=== PATIENT | male | born 1995 | race Caucasian/White ===

== ENCOUNTER 2019-10-15 19:35 | Emergency (ER) | payer MEDICAID, OTHER ==
[~2019-10-15] VITALS: Ht 175.3 cm; Wt 61.0 kg
--- NOTE | 2019-10-15 20:06 | NUR ---
assisting RN with pt care, dental laboratory technology teacher at bedside, pt is compliant with blood draw, also gave pt food and water, pt aware UA needed
--- NOTE | 2019-10-15 20:07 | NUR ---
pt has small open wound to rt hip x2 weeks per pt, no drainage, no swelling, no redness, unk how sore occurred
--- NOTE | 2019-10-15 20:21 | NUR ---
gave pt large pitcher of water
[2019-10-15 20:23] LABS: BASOPHILS # (AUTO) 0.1 X10'3 (0-0.2); BASOPHILS % (AUTO) 0.4 % (0-1); EOSINOPHILS # (AUTO) 0.2 X10'3 (0-0.9); EOSINOPHILS % (AUTO) 1.7 % (0-6); HEMOGLOBIN 12.6 g/dl (14.0-17.9); LYMPHOCYTES # (AUTO) 2.4 X10'3 (1.1-4.8); LYMPHOCYTES % (AUTO) 16.5 % (21-51); MEAN CORPUSCULAR HEMOGLOBIN 29.1 PG (27.0-31.0); MEAN CORPUSCULAR HGB CONC 33.3 g/dL (33.0-36.5); MEAN CORPUSCULAR VOLUME 87.5 FL (78-98); MEAN PLATELET VOLUME 8.7 FL (7.4-10.4); MONOCYTES # (AUTO) 1.2 X10'3 (0-0.9); MONOCYTES % (AUTO) 8.2 % (2-12); NEUTROPHILS # (AUTO) 10.7 X10'3 (1.8-7.7); NEUTROPHILS % (AUTO) 73.2 % (42-75); PLATELET COUNT 328 X10'3 (140-440); RED BLOOD COUNT 4.34 X10'6 (4.70-6.10); RED CELL DISTRIBUTION WIDTH 13.6 % (11.5-14.5); WHITE BLOOD COUNT 14.5 X10'3 (4.5-11.0)
[2019-10-15 20:33] LABS: ALANINE AMINOTRANSFERASE 37 U/L (12-78); ALBUMIN 4.3 G/DL (3.4-5.0); ALBUMIN/GLOBULIN RATIO 1.2 (1.1-1.5); ALKALINE PHOSPHATASE 113 IU/L (46-116); ANION GAP 8 (8-16); ASPARTATE AMINO TRANSFERASE 23 U/L (10-37); BILIRUBIN,TOTAL 0.2 MG/DL (0.1-1.0); BLOOD UREA NITROGEN 14 MG/DL (7-18); BUN/CREATININE RATIO 16.5 (5.4-32.0); CHLORIDE 105 MMOL/L (99-107); CREATININE 0.85 MG/DL (0.60-1.10); ETHANOL < 0.010 GM/DL (0.0-0.010); GLUCOSE 96 MG/DL (70-104); POTASSIUM 3.8 MMOL/L (3.5-5.1); SODIUM 141 MMOL/L (135-145); TOTAL CARBON DIOXIDE 28.5 MMOL/L (24-32); TOTAL PROTEIN 7.8 G/DL (6.4-8.2); eGFR > 90 ML/MIN
[2019-10-15] MEDS ORDERED: diphenhydrAMINE 50 mg/ml inj IM ONE (20:35)
[2019-10-15] MEDS ORDERED: LORazepam 2 mg/ml vial IM ONE (20:35)
[2019-10-15] MEDS ORDERED: haloperidol lactate 5mg/ml inj IM ONE (20:35)
[2019-10-15 20:36] LABS: ACETAMINOPHEN < 2.0 UG/ML (10-30)
--- NOTE | 2019-10-15 20:49 | NUR ---
pt provided urine via urinal. Pt given b52, security at bedside for administration, pt aggitated and stating we could not given him the meds. Once all staff at bedside pt turned prone and allowed injections without issue.
[2019-10-15 20:50] LABS: CLARITY,URINE CLEAR (Clear); COLOR,URINE YELLOW (Yellow); GLUCOSE, URINE NEGATIVE (Neg); KETONES,URINE NEGATIVE (Neg); LEUKOCYTE ESTERASE ,URINE NEGATIVE (Neg); NITRITES, URINE NEGATIVE (Neg); OCCULT BLOOD,URINE NEGATIVE (Neg); PROTEIN,URINE NEGATIVE (Neg); UROBILINOGEN,URINE 0.2 E.U/dL (0.2-1.0)
[2019-10-15 20:53] LABS: UA COLLECTION TYPE URINAL
[2019-10-15 21:12] LABS: URINE AMPHETAMINE SCREEN NEGATIVE (Neg); URINE BARBITUATE SCREEN NEGATIVE (Neg); URINE BENZODIAZEPINES SCREEN NEGATIVE (Neg); URINE CANNABINOID SCREEN NEGATIVE (Neg); URINE COCAINE SCREEN NEGATIVE (Neg); URINE METHADONE SCREEN NEGATIVE (Neg); URINE OPIATE SCREEN NEGATIVE (Neg); URINE PHENCYCLIDINE SCREEN NEGATIVE (Neg)
--- NOTE | 2019-10-15 22:17 | NUR ---
PT SLEEPING , LYING ON HIS LEFT SIDE WITH BLANKETS COVERING TO HIS CHEST. RR 14 AND UNLABORED.
[2019-10-15] MEDS ORDERED: UNABLE TO OBTAIN (22:18)
--- NOTE | 2019-10-15 22:46 | NUR ---
RELIEVING RN FOR BREAK, PT IS SLEEPING, RESP EVEN AND UNLABORED, AROUSEABLE, FALLS BACK ASLEEP FAST
--- NOTE | 2019-10-15 23:19 | NUR ---
packet to [facility]
--- NOTE | 2019-10-15 23:20 | NUR ---
The patient moved to bed 22. He is sleeping at this time.
--- NOTE | 2019-10-15 23:21 | NUR ---
pt taken to overflow, able to transfer self from [facility] to bed without assist
--- NOTE | 2019-10-16 01:10 | NUR ---
The patient appears to be sleeping
--- NOTE | 2019-10-16 03:29 | NUR ---
The patient appears to be sleeping
--- NOTE | 2019-10-16 04:44 | NUR ---
The patient appears to be sleeping
--- NOTE | 2019-10-16 08:10 | NUR ---
MENTAL HEALTH WORKER AT THE BEDSIDE TO INTERVIEW PATIENT.
--- NOTE | 2019-10-16 08:25 | NUR ---
BREAKFAST SERVED. ATE 100% OF MEAL AND TOLERATED WELL.
--- NOTE | 2019-10-16 08:35 | NUR ---
MENTAL HEALTH WORKER AT THE BEDSIDE. PATIENT STATES HE NEEDS TO BE IN [place] TOMORROW FOR A COURT DATE. HE IS UNSURE HOW HE IS GETTING THERE, BUT HE IS ENCOURAGED TO CALL FAMILY MEMBER FOR ASSISTANCE WITH TRANSPORTATION. ATTEMPTING TO USE PHONE TO CALL FAMILY, BUT UNSUCCESSFUL AT THIS TIME.
[2019-10-16] MEDS: sulfamethoxazole/trimethoprim DS (800/160mg) tablet PO SCH ×2 (08:39→19:34)
--- NOTE | 2019-10-16 09:38 | NUR ---
RCVD REPORT FROM [facility], PT IS BEING SEEN BY MEMBER OF [employer], THEY ARE WORKING ON TRANSPORTATION TO [place], AND DISCHARGE PLAN
--- NOTE | 2019-10-16 09:56 | NUR ---
SAVANAH FROM [employer] STATES SHE IS GOING TO GO AND BUY A TRAIN TICKET FOR [place] AT 0200, WE WILL BE CALLING A CAB TO TAKE HIM THERE AND HE STAES HE HAS A PLACE TO STAY WHEN HE ARRIVES
--- NOTE | 2019-10-16 10:33 | NUR ---
REGISTRATION IS IN WITH PT, HE IS CALM AND COOPERATIVE WITH STAFF
--- NOTE | 2019-10-16 11:17 | NUR ---
PT IS SLEEPING, NO NEEDS AT THIS TIME
--- NOTE | 2019-10-16 12:04 | NUR ---
PT SUPINE IN BED, SLEEPING, REGULAR BREATHING OBSERVED
--- NOTE | 2019-10-16 13:20 | NUR ---
PT IS SUPINE IN BED ASLEEP, REGULAR BREATHING PRESENT, WILL CONTINUE TO MONITOR
--- NOTE | 2019-10-16 14:32 | NUR ---
PT IS SITTING ON HIS BEAD EATING HIS LUNCH, NO S/S OF AGITATION OBSERVED Addendum: 10/16/19 at 1433 by [email or web address] SITTING ON HIS BED EATING
--- NOTE | 2019-10-16 15:09 | NUR ---
PATIENT REQUESTED SOMETHING TO READ, I GAVE HIM MAGAZINES AND A BOOK, NO OTHER NEEDS AT THIS TIME
--- NOTE | 2019-10-16 16:02 | NUR ---
PATIENT LAYING ON HIS RIGHT SIDE, AWAKE, HAS BEEN CALMLY TALKING TO NEIGHBOR
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
[2019-10-16] MEDS ORDERED: acetaminophen 325mg tablet PO ONE (16:45)
[2019-10-16] MEDS ORDERED: lactobacillus rhamnosus 10,000 MMU CELLS/CAPSULE PO SCH (20:00)
--- NOTE | 2019-10-16 20:11 | NUR ---
The patient has been resting on his bed after her eating dinner. He is aware of the plan to discharge to the train station later tonight.
--- NOTE | 2019-10-16 21:15 | NUR ---
The patient appears to be asleep
[2019-10-16] MEDS ORDERED: SULF1TAB49 PO (22:01)
--- NOTE | 2019-10-16 23:33 | NUR ---
The patient is resting on his bed but awake and making frequent requests of staff.
[2019-10-17 01:50] VITALS: BP 103/61
== END 2019-10-17 01:55 | disposition home or self-care (01) ==
LOC: ER 19:36
DX: F31.9 Bipolar disorder, unspecified (principal); Z59.0 Homelessness
CPT/HCPCS: 36415; 80053; 80305; 80320; 80329; 81003; 85025; 96372; 99285; J1200; J1630; J2060